=== PATIENT | female | born 1965 ===

== ENCOUNTER 2023-05-26 08:09 | Day surgery (SDC) | payer OTHER ==
[2023-05-22 11:13] VITALS: BMI 30.5
[2023-05-26] MEDS ORDERED: fentaNYL PF 100 MCG/2 ML SYRINGE ONE (08:59)
[2023-05-26] MEDS ORDERED: Dexamethasone 4 mg/ml Vial ONE ×2 (09:00→10:49)
[2023-05-26] MEDS ORDERED: Rocuronium Bromide 10 MG/ML (10ML VIAL) ONE (09:00)
[2023-05-26] MEDS ORDERED: Ondansetron PF 4 MG/2 ML Vial ONE (09:00)
[2023-05-26] MEDS ORDERED: Lidocaine 1% PF 5 ML VIAL ONE (09:00)
[2023-05-26] MEDS ORDERED: Midazolam HCl 2 mg/2 ml Vial ONE (09:00)
[2023-05-26] MEDS ORDERED: PROPOFOL 20 ML ONE (09:01)
[2023-05-26] MEDS ORDERED: HYDROmorphone 0.5 MG/0.5 ML SYRINGE ONE (09:42)
[2023-05-26] MEDS ORDERED: SUGAMMADEX SODIUM 200 MG/2 ML VIAL ONE (09:42)
[2023-05-26] MEDS ORDERED: LevoFLOXacin D5W 500 mg (100 mL) BAG ONE (10:06)
[2023-05-26] MEDS ORDERED: Clindamycin/D5W 900 mg/50 ml Premix Bag ONE (10:12)
[2023-05-26 10:16] LABS: #Basophils 0.1 thou/uL (0.0-0.2); #Eosinphils 0.2 thou/uL (0.0-0.7); #Monocytes 0.6 thou/uL (0.11-0.59); #Neutrophils 2.7 thou/uL (1.40-6.50); %Basophils 1.4 % (0.0-1.0); %Eosinophils 3.3 % (0.0-10.0); %Lymphocytes 31.5 % (21.0-51.0); %Monocytes 11.4 % (0.0-10.0); %Neutrophils 51.8 % (42.0-75.0); Hematocrit 37.2 % (36.0-47.0); Hemoglobin 12.5 g/dL (12.0-16.0); Mean Corpuscular HGB CONC 33.6 g/dL (32.0-36.0); Mean Corpuscular Hemoglobin 32.1 pg (27.0-31.0); Mean Corpuscular Volume 95.4 fl (78.0-98.0); Mean Platelet Volume 11.2 fL (7.4-10.4); Platelet Count 163 10x3/uL (130-400); RBC Distribution Width 12.4 % (11.5-14.5); White Blood Cell (WBC) Count 5.1 10x3/uL (4.8-10.8)
[2023-05-26 10:40] LABS: Anion Gap 12 mmol/L (10-20); BUN (Urea Nitrogen) 16 mg/dL (9.8-20.1); Calc. Creatinine Clearance 84 mL/min (70-130); Calcium 9.8 mg/dL (7.8-10.44); Carbon Dioxide 29 mmol/L (22-29); Chloride 105 mmol/L (98-107); Estimated GFR 58; Glucose 88 mg/dL (70-105); Potassium 4.7 mmol/L (3.5-5.1); Sodium 141 mmol/L (136-145)
[2023-05-26] MEDS ORDERED: PHENYLEPHRINE-NS 100 MCG/ML 10 ML SYRINGE ONE ×2 (10:41→11:18)
[2023-05-26] MEDS ORDERED: fentaNYL 50 mcg/mL 1 mL Vial ONE ×2 (12:00→12:21)
[2023-05-26] MEDS ORDERED: Cyclobenzaprine 10 MG TAB ONE (13:12)
[2023-05-26] MEDS ORDERED: HYDROcodone/Acetaminophen 10/325 mg Tablet ONE (14:14)
== END 2023-05-26 14:29 | disposition home or self-care (01) ==
LOC: SDC 08:09
PROVIDERS: ATTEND Neurological Surgery
PROC: 0RG1070 Fusion of Cervical Vertebral Joint with Autologous Tissue Substitute, Anterior Approach, Anterior Column, Open Approach (ICD-10-PCS; principal; 2023-05-26)
DX: M50.122 Cervical disc disorder at C5-C6 level with radiculopathy (principal); Z88.0 Allergy status to penicillin; Z91.041 Radiographic dye allergy status
CPT/HCPCS: 80048; 85025; 93005; 93010; C1713; J1100; J1170; J1956; J2250; J2405; J2704; J3010; J3490